=== PATIENT | male | born 1970 | race Two or more races ===

== ENCOUNTER → 2024-06-11 | Day surgery (SDC) | payer MEDICAID ==
[~2024-06-11] VITALS: Ht 170.2 cm; Wt 87.7 kg
[~2024-06-11] MED LIST: LIDOCAINE/PF 2% 5 ML VIAL ONE; PROPOFOL 1% ISO-OSM 1000 MG/100 ML BOTTLE ONE; SODIUM CHLORIDE 0.9% 1,000 ML ONE
[2024-06-11] MEDS: SODIUM CHLORIDE 0.9% 1,000 ML IV ONE (07:14)
== END | disposition still patient (30) ==
LOC: SURGERY 06:23
PROVIDERS: ATTEND Internal Medicine
DX: R19.5 Other fecal abnormalities (principal); K64.8 Other hemorrhoids; K21.9 Gastro-esophageal reflux disease without esophagitis; K29.80 Duodenitis without bleeding; K29.70 Gastritis, unspecified, without bleeding; K44.9 Diaphragmatic hernia without obstruction or gangrene; Z79.899 Other long term (current) drug therapy; Z98.890 Other specified postprocedural states
CPT/HCPCS: 45380; 43239; 88305; J3490; J2704; J7030